=== PATIENT | male | born 1955 | race Caucasian/White ===

== ENCOUNTER 2017-02-23 05:57 | Inpatient (IN) | payer BC ==
[2017-02-23] MEDS ORDERED: MEPERIDINE 100 MG INJ (08:16)
[2017-02-23] MEDS ORDERED: NEOSTIGMINE 3 MG/3 ML SYRINGE ×2 (08:16→09:11)
[2017-02-23] MEDS ORDERED: LIDOCAINE 2% (SDV) 5 ML INJ (08:16)
[2017-02-23] MEDS ORDERED: PROPOFOL 20 ML (08:16)
[2017-02-23] MEDS ORDERED: ROCURONIUM 50 MG INJ ×2 (08:16→09:46)
[2017-02-23] MEDS ORDERED: GLYCOPYRROLATE 0.4 MG INJ ×2 (08:16→09:11)
[2017-02-23] MEDS ORDERED: SUCCINYLCHOLINE CHLORIDE 100 MG/5 ML SYG IV (08:16)
[2017-02-23] MEDS ORDERED: ONDANSETRON 4 MG INJ (10:47)
[2017-02-23] MEDS ORDERED: FENTAnyl 50 MCG/ML VIAL IV ×2 (11:00)
[2017-02-23] MEDS ORDERED: LABETALOL HCL 20MG INJ IV (11:00)
[2017-02-23] MEDS ORDERED: METOCLOPRAMIDE 10 MG INJ IV (11:00)
[2017-02-23] MEDS ORDERED: HYDROmorphONE (0.2 MG/ML) 10ML SYG IV ×3 (11:00)
[2017-02-23] MEDS ORDERED: DIPHENHYDRAMINE 50 MG INJ IV (11:00)
[2017-02-23] MEDS ORDERED: hydrALAzine 20 MG INJ IV (11:00)
[2017-02-23] MEDS ORDERED: MIDAZOLAM 1 MG/ML 2 ML INJ IV (11:00)
[2017-02-23] MEDS ORDERED: OXYCODONE/ACETAMINOPHEN (5/325) TAB PO ×2 (11:00)
[2017-02-23] MEDS ORDERED: EPHEDrine SULFATE 50 MG/5 ML SYG IV (11:00)
[2017-02-23] MEDS ORDERED: ONDANSETRON 4 MG INJ IV (11:30)
[2017-02-23] MEDS: morphine 1 MG/ML 30 ML (PCA) IV ×3 (11:33→23:59)
[2017-02-23] MEDS: FENTAnyl 50 MCG/ML VIAL IV ×2 (11:35→11:42)
[2017-02-23] MEDS: MEPERIDINE 25 MG INJ IV (11:35)
[2017-02-23] MEDS: ONDANSETRON 4 MG INJ IV (11:35)
[2017-02-23] MEDS: SOD CHLORIDE 0.9% 1,000 ML IV (11:38)
[2017-02-23] MEDS: AMPICILLIN/SULB 3 GM/NS (PMX) 100 ML IVPB (12:25)
[2017-02-23] MEDS: D5W-0.45 NACL + KCL 20 MEQ 1,000 ML IV ×3 (13:00→19:46)
[2017-02-24] MEDS: D5W-0.45 NACL + KCL 20 MEQ 1,000 ML IV ×5 (01:11→23:55)
[2017-02-24] MEDS: PANTOPRAZOLE 40 MG INJ IV (06:23)
[2017-02-24] MEDS: morphine 1 MG/ML 30 ML (PCA) IV ×2 (07:00→18:11)
[2017-02-24 09:19] LABS: ADD MAN DIFF? NO
[2017-02-24 09:27] LABS: ABNORMAL IP MESSAGE 1; HEMATOCRIT 38.8 % (42.0-52.0); LYMPHOCYTES # 0.3 10^3/ul (0.8-2.9); LYMPHOCYTES % 6.6 % (15.0-51.0); MEAN CORPUSCULAR HEMOGLOBIN 29.2 pg (29.0-33.0); MEAN CORPUSCULAR HGB CONC 33.5 g/dl (32.0-37.0); MEAN CORPUSCULAR VOLUME 87.2 fl (82.0-101.0); MONOCYTE # 0.4 10^3/ul (0.3-0.9); MONOCYTES % 7.6 % (0.0-11.0); NEUTROPHIL # 4.3 10^3/ul (1.6-7.5); NEUTROPHILS % 85.2 % (39.0-77.0); PLATELET COUNT 139 10^3/UL (140-415); POSITIVE DIFF @See below; RED BLOOD COUNT 4.45 10^6/ul (4.70-6.10); RED CELL DISTRIBUTION WIDTH 13.2 % (11.5-14.5)
[2017-02-24 09:47] LABS: INR 1.06; PROTIME 13.9 Sec (11.9-14.9); PT RATIO 1.1
[2017-02-24 09:48] LABS: PARTIAL THROMBOPLASTIN TIME 31.9 Sec (25.0-35.0)
[2017-02-24 09:49] LABS: ANION GAP 8 (8-16); BLOOD UREA NITROGEN 6 mg/dl (7-20); CALCIUM 8.7 mg/dl (8.4-10.2); CARBON DIOXIDE 30 mmol/L (21-31); CHLORIDE 103 mmol/L (97-110); CREATININE 0.81 mg/dl (0.61-1.24); GLUCOSE 145 mg/dl (70-220); MAGNESIUM 1.7 mg/dl (1.7-2.5); PHOSPHORUS 2.6 mg/dl (2.5-4.9); POTASSIUM 4.1 mmol/L (3.5-5.1); SODIUM 137 mmol/L (135-144)
[2017-02-24] MEDS: ACETAMINOPHEN 1000MG/100ML IV 100 ML IVPB (22:01)
[2017-02-25] MEDS: D5W-0.45 NACL + KCL 20 MEQ 1,000 ML IV ×6 (03:51→23:08)
[2017-02-25] MEDS: PANTOPRAZOLE 40 MG INJ IV (05:39)
[2017-02-25 11:37] LABS: ADD MAN DIFF? NO
[2017-02-25 11:40] LABS: ABNORMAL IP MESSAGE 1; HEMOGLOBIN 14.4 g/dl (14.0-18.0); LYMPHOCYTES # 0.3 10^3/ul (0.8-2.9); LYMPHOCYTES % 5.8 % (15.0-51.0); MEAN CORPUSCULAR HEMOGLOBIN 28.7 pg (29.0-33.0); MEAN CORPUSCULAR HGB CONC 32.7 g/dl (32.0-37.0); MEAN CORPUSCULAR VOLUME 87.6 fl (82.0-101.0); MEAN PLATELET VOLUME 11.1 fl (7.4-10.4); MONOCYTE # 0.3 10^3/ul (0.3-0.9); MONOCYTES % 6.9 % (0.0-11.0); NEUTROPHIL # 3.8 10^3/ul (1.6-7.5); NEUTROPHILS % 87.1 % (39.0-77.0); PLATELET COUNT 141 10^3/UL (140-415); POSITIVE DIFF @See below; RED BLOOD COUNT 5.02 10^6/ul (4.70-6.10); RED CELL DISTRIBUTION WIDTH 12.8 % (11.5-14.5)
[2017-02-25 11:40] LABS: WHITE BLOOD COUNT 4.3 10^3/ul (4.8-10.8)
[2017-02-25 12:09] LABS: ANION GAP 16 (8-16); BLOOD UREA NITROGEN 4 mg/dl (7-20); CALCIUM 9.6 mg/dl (8.4-10.2); CARBON DIOXIDE 33 mmol/L (21-31); CHLORIDE 100 mmol/L (97-110); CREATININE 0.83 mg/dl (0.61-1.24); GLUCOSE 138 mg/dl (70-220); MAGNESIUM 1.9 mg/dl (1.7-2.5); PHOSPHORUS 2.6 mg/dl (2.5-4.9); POTASSIUM 4.6 mmol/L (3.5-5.1); SODIUM 144 mmol/L (135-144)
[2017-02-25 12:35] LABS: PT RATIO 1.1
[2017-02-25] MEDS: PIPER-TAZO 3.375 GM IV (PMX) 50 ML IVPB ×2 (13:23→23:08)
[2017-02-25 14:30] LABS: INR 1.04; PROTIME 13.8 Sec (11.9-14.9)
[2017-02-25 14:33] LABS: PARTIAL THROMBOPLASTIN TIME 32.3 Sec (25.0-35.0)
[2017-02-25] MEDS: morphine 4 MG/ML VIAL IV (16:02)
[2017-02-25] MEDS ORDERED: METOPROLOL 5 MG INJ IV (16:30)
[2017-02-25] MEDS: SOD CHLORIDE 0.9% 500 ML IV (17:29)
[2017-02-25 18:10] LABS: LACTIC ACID 0.9 mmol/L (0.5-2.0)
[2017-02-25 18:14] LABS: TROPONIN-I < 0.012 ng/ml (0.00-0.12)
[2017-02-25] MEDS ORDERED: HYDROmorphONE 1 MG/ML SYG IV (18:30)
[2017-02-25 18:40] LABS: THYROID STIMULATING HORMONE 0.985 MIU/L (0.465-4.680)
[2017-02-25] MEDS: HYDROmorphONE 1 MG/ML SYG IV (20:22)
[2017-02-26] MEDS: HYDROmorphONE 1 MG/ML SYG IV ×4 (01:04→21:42)
[2017-02-26 01:25] LABS: TROPONIN-I < 0.012 ng/ml (0.00-0.12)
[2017-02-26] MEDS: PANTOPRAZOLE 40 MG INJ IV (05:57)
[2017-02-26] MEDS: PIPER-TAZO 3.375 GM IV (PMX) 50 ML IVPB ×3 (05:57→21:42)
[2017-02-26] MEDS: D5W-0.45 NACL + KCL 20 MEQ 1,000 ML IV ×3 (05:57→18:21)
[2017-02-26 10:10] LABS: ADD MAN DIFF? NO
[2017-02-26 10:17] LABS: WHITE BLOOD COUNT 3.3 10^3/ul (4.8-10.8)
[2017-02-26 10:17] LABS: ABNORMAL IP MESSAGE 1; BASOPHILS % 0.3 % (0.0-2.0); EOSINOPHILS % 1.2 % (0.0-7.0); HEMATOCRIT 38.4 % (42.0-52.0); HEMOGLOBIN 12.7 g/dl (14.0-18.0); LYMPHOCYTES # 0.3 10^3/ul (0.8-2.9); LYMPHOCYTES % 8.5 % (15.0-51.0); MEAN CORPUSCULAR HEMOGLOBIN 28.7 pg (29.0-33.0); MEAN CORPUSCULAR HGB CONC 33.1 g/dl (32.0-37.0); MEAN CORPUSCULAR VOLUME 86.9 fl (82.0-101.0); MEAN PLATELET VOLUME 11.2 fl (7.4-10.4); MONOCYTE # 0.3 10^3/ul (0.3-0.9); MONOCYTES % 7.9 % (0.0-11.0); NEUTROPHIL # 2.7 10^3/ul (1.6-7.5); NEUTROPHILS % 82.1 % (39.0-77.0); PLATELET COUNT 116 10^3/UL (140-415); POSITIVE DIFF @See below; RED BLOOD COUNT 4.42 10^6/ul (4.70-6.10); RED CELL DISTRIBUTION WIDTH 12.7 % (11.5-14.5)
[2017-02-26 10:30] LABS: INR 1.09; PROTIME 14.2 Sec (11.9-14.9); PT RATIO 1.1
[2017-02-26 10:45] LABS: ANION GAP 12 (8-16); BLOOD UREA NITROGEN 6 mg/dl (7-20); CALCIUM 8.9 mg/dl (8.4-10.2); CARBON DIOXIDE 29 mmol/L (21-31); CHLORIDE 101 mmol/L (97-110); GLUCOSE 127 mg/dl (70-220); MAGNESIUM 1.9 mg/dl (1.7-2.5); PHOSPHORUS 3.2 mg/dl (2.5-4.9); POTASSIUM 3.9 mmol/L (3.5-5.1); SODIUM 138 mmol/L (135-144)
[2017-02-26 11:05] LABS: TROPONIN-I < 0.012 ng/ml (0.00-0.12)
[2017-02-27] MEDS: GUAIFENESIN/CODEINE 5ML CUP PO (01:30)
[2017-02-27] MEDS: D5W-0.45 NACL + KCL 20 MEQ 1,000 ML IV ×4 (01:35→22:42)
[2017-02-27] MEDS: PIPER-TAZO 3.375 GM IV (PMX) 50 ML IVPB ×3 (06:00→22:42)
[2017-02-27] MEDS: PANTOPRAZOLE 40 MG INJ IV (06:00)
[2017-02-27 08:19] LABS: ADD MAN DIFF? NO
[2017-02-27 08:25] LABS: WHITE BLOOD COUNT 3.4 10^3/ul (4.8-10.8)
[2017-02-27 08:25] LABS: ABNORMAL IP MESSAGE 1; BASOPHILS % 0.6 % (0.0-2.0); EOSINOPHILS # 0.1 10^3/ul (0.0-0.5); EOSINOPHILS % 2.9 % (0.0-7.0); HEMATOCRIT 42.2 % (42.0-52.0); LYMPHOCYTES # 0.5 10^3/ul (0.8-2.9); LYMPHOCYTES % 15.6 % (15.0-51.0); MEAN CORPUSCULAR HEMOGLOBIN 28.9 pg (29.0-33.0); MEAN CORPUSCULAR HGB CONC 33.2 g/dl (32.0-37.0); MEAN CORPUSCULAR VOLUME 87.2 fl (82.0-101.0); MONOCYTE # 0.3 10^3/ul (0.3-0.9); MONOCYTES % 9.7 % (0.0-11.0); NEUTROPHIL # 2.4 10^3/ul (1.6-7.5); NEUTROPHILS % 70.9 % (39.0-77.0); PLATELET COUNT 170 10^3/UL (140-415); POSITIVE DIFF @See below; RED BLOOD COUNT 4.84 10^6/ul (4.70-6.10); RED CELL DISTRIBUTION WIDTH 12.7 % (11.5-14.5)
[2017-02-27 09:03] LABS: ANION GAP 15 (8-16); BLOOD UREA NITROGEN 11 mg/dl (7-20); CALCIUM 9.8 mg/dl (8.4-10.2); CARBON DIOXIDE 30 mmol/L (21-31); CHLORIDE 101 mmol/L (97-110); CREATININE 0.94 mg/dl (0.61-1.24); GLUCOSE 118 mg/dl (70-220); POTASSIUM 4.1 mmol/L (3.5-5.1); SODIUM 142 mmol/L (135-144)
[2017-02-27] MEDS: HYDROmorphONE 1 MG/ML SYG IV (17:41)
[2017-02-28] MEDS: D5W-0.45 NACL + KCL 20 MEQ 1,000 ML IV ×3 (05:11→18:31)
[2017-02-28] MEDS: PANTOPRAZOLE 40 MG INJ IV (05:12)
[2017-02-28] MEDS: PIPER-TAZO 3.375 GM IV (PMX) 50 ML IVPB ×3 (05:12→22:43)
[2017-02-28 08:38] LABS: WHITE BLOOD COUNT 3.9 10^3/ul (4.8-10.8)
[2017-02-28 08:38] LABS: ADD MAN DIFF? NO; BASOPHILS % 0.5 % (0.0-2.0); EOSINOPHILS # 0.2 10^3/ul (0.0-0.5); EOSINOPHILS % 3.9 % (0.0-7.0); HEMATOCRIT 40.2 % (42.0-52.0); HEMOGLOBIN 13.3 g/dl (14.0-18.0); LYMPHOCYTES # 0.6 10^3/ul (0.8-2.9); MEAN CORPUSCULAR HEMOGLOBIN 28.9 pg (29.0-33.0); MEAN CORPUSCULAR HGB CONC 33.1 g/dl (32.0-37.0); MEAN CORPUSCULAR VOLUME 87.4 fl (82.0-101.0); MEAN PLATELET VOLUME 10.8 fl (7.4-10.4); MONOCYTE # 0.4 10^3/ul (0.3-0.9); NEUTROPHIL # 2.7 10^3/ul (1.6-7.5); NEUTROPHILS % 70.3 % (39.0-77.0); PLATELET COUNT 163 10^3/UL (140-415); RED CELL DISTRIBUTION WIDTH 12.8 % (11.5-14.5)
[2017-02-28 09:06] LABS: ANION GAP 16 (8-16); BLOOD UREA NITROGEN 17 mg/dl (7-20); CALCIUM 9.3 mg/dl (8.4-10.2); CARBON DIOXIDE 29 mmol/L (21-31); CHLORIDE 104 mmol/L (97-110); CREATININE 0.95 mg/dl (0.61-1.24); GLUCOSE 127 mg/dl (70-220); POTASSIUM 4.6 mmol/L (3.5-5.1); SODIUM 144 mmol/L (135-144)
[2017-02-28] MEDS ORDERED: VITAMIN A & D 5 GM OINT PACKET TOP (10:30)
[2017-03-01] MEDS: D5W-0.45 NACL + KCL 20 MEQ 1,000 ML IV ×4 (01:37→21:17)
[2017-03-01] MEDS: PANTOPRAZOLE 40 MG INJ IV (05:55)
[2017-03-01] MEDS: PIPER-TAZO 3.375 GM IV (PMX) 50 ML IVPB (05:55)
[2017-03-01 09:03] LABS: ADD MAN DIFF? NO
[2017-03-01 09:06] LABS: WHITE BLOOD COUNT 3.4 10^3/ul (4.8-10.8)
[2017-03-01 09:06] LABS: ABNORMAL IP MESSAGE 1; BASOPHILS % 0.6 % (0.0-2.0); EOSINOPHILS # 0.2 10^3/ul (0.0-0.5); EOSINOPHILS % 5.9 % (0.0-7.0); HEMATOCRIT 40.4 % (42.0-52.0); HEMOGLOBIN 13.2 g/dl (14.0-18.0); LYMPHOCYTES # 0.6 10^3/ul (0.8-2.9); LYMPHOCYTES % 17.1 % (15.0-51.0); MEAN CORPUSCULAR HEMOGLOBIN 28.4 pg (29.0-33.0); MEAN CORPUSCULAR HGB CONC 32.7 g/dl (32.0-37.0); MEAN CORPUSCULAR VOLUME 87.1 fl (82.0-101.0); MEAN PLATELET VOLUME 10.6 fl (7.4-10.4); MONOCYTE # 0.3 10^3/ul (0.3-0.9); MONOCYTES % 9.7 % (0.0-11.0); NEUTROPHIL # 2.3 10^3/ul (1.6-7.5); NEUTROPHILS % 66.4 % (39.0-77.0); PLATELET COUNT 171 10^3/UL (140-415); POSITIVE DIFF @See below; RED BLOOD COUNT 4.64 10^6/ul (4.70-6.10); RED CELL DISTRIBUTION WIDTH 12.8 % (11.5-14.5)
[2017-03-01 09:27] LABS: ANION GAP 15 (8-16); BLOOD UREA NITROGEN 13 mg/dl (7-20); CALCIUM 9.2 mg/dl (8.4-10.2); CARBON DIOXIDE 30 mmol/L (21-31); CHLORIDE 102 mmol/L (97-110); CREATININE 0.89 mg/dl (0.61-1.24); GLUCOSE 114 mg/dl (70-220); POTASSIUM 4.1 mmol/L (3.5-5.1); SODIUM 143 mmol/L (135-144)
[2017-03-01 22:53] LABS: ADD MAN DIFF? NO
[2017-03-01 22:54] LABS: ABNORMAL IP MESSAGE 1; BASOPHILS % 0.2 % (0.0-2.0); EOSINOPHILS # 0.2 10^3/ul (0.0-0.5); EOSINOPHILS % 4.2 % (0.0-7.0); HEMATOCRIT 39.4 % (42.0-52.0); HEMOGLOBIN 13.2 g/dl (14.0-18.0); LYMPHOCYTES # 0.6 10^3/ul (0.8-2.9); LYMPHOCYTES % 13.9 % (15.0-51.0); MEAN CORPUSCULAR HEMOGLOBIN 28.9 pg (29.0-33.0); MEAN CORPUSCULAR HGB CONC 33.5 g/dl (32.0-37.0); MEAN CORPUSCULAR VOLUME 86.2 fl (82.0-101.0); MEAN PLATELET VOLUME 10.4 fl (7.4-10.4); MONOCYTE # 0.5 10^3/ul (0.3-0.9); MONOCYTES % 11.4 % (0.0-11.0); NEUTROPHIL # 2.8 10^3/ul (1.6-7.5); NEUTROPHILS % 70.1 % (39.0-77.0); PLATELET COUNT 174 10^3/UL (140-415); POSITIVE DIFF @See below; RED BLOOD COUNT 4.57 10^6/ul (4.70-6.10); RED CELL DISTRIBUTION WIDTH 12.8 % (11.5-14.5)
[2017-03-01 23:21] LABS: ANION GAP 13 (8-16); BLOOD UREA NITROGEN 15 mg/dl (7-20); CALCIUM 9.6 mg/dl (8.4-10.2); CARBON DIOXIDE 30 mmol/L (21-31); CHLORIDE 103 mmol/L (97-110); CREATININE 0.87 mg/dl (0.61-1.24); GLUCOSE 121 mg/dl (70-220); POTASSIUM 3.9 mmol/L (3.5-5.1); SODIUM 142 mmol/L (135-144)
[2017-03-02] MEDS: D5W-0.45 NACL + KCL 20 MEQ 1,000 ML IV ×3 (04:15→17:09)
[2017-03-02] MEDS: PANTOPRAZOLE 40 MG INJ IV (06:59)
[2017-03-02 08:23] LABS: ADD MAN DIFF? NO
[2017-03-02 08:30] LABS: BASOPHILS % 0.5 % (0.0-2.0); EOSINOPHILS # 0.3 10^3/ul (0.0-0.5); EOSINOPHILS % 5.1 % (0.0-7.0); HEMATOCRIT 46.8 % (42.0-52.0); HEMOGLOBIN 15.2 g/dl (14.0-18.0); LYMPHOCYTES # 1.1 10^3/ul (0.8-2.9); LYMPHOCYTES % 18.7 % (15.0-51.0); MEAN CORPUSCULAR HEMOGLOBIN 28.2 pg (29.0-33.0); MEAN CORPUSCULAR HGB CONC 32.5 g/dl (32.0-37.0); MEAN CORPUSCULAR VOLUME 86.8 fl (82.0-101.0); MEAN PLATELET VOLUME 11.1 fl (7.4-10.4); MONOCYTE # 0.6 10^3/ul (0.3-0.9); NEUTROPHIL # 3.7 10^3/ul (1.6-7.5); NEUTROPHILS % 64.4 % (39.0-77.0); PLATELET COUNT 243 10^3/UL (140-415); RED BLOOD COUNT 5.39 10^6/ul (4.70-6.10); RED CELL DISTRIBUTION WIDTH 12.5 % (11.5-14.5)
[2017-03-02 08:30] LABS: WHITE BLOOD COUNT 5.7 10^3/ul (4.8-10.8)
[2017-03-02 09:03] LABS: ANION GAP 18 (8-16); BLOOD UREA NITROGEN 14 mg/dl (7-20); CALCIUM 9.8 mg/dl (8.4-10.2); CARBON DIOXIDE 29 mmol/L (21-31); CHLORIDE 102 mmol/L (97-110); CREATININE 0.85 mg/dl (0.61-1.24); GLUCOSE 109 mg/dl (70-220); POTASSIUM 4.5 mmol/L (3.5-5.1); SODIUM 144 mmol/L (135-144)
[2017-03-02] MEDS: ATENOLOL 25 MG TAB PO (21:22)
[2017-03-03] MEDS: PANTOPRAZOLE 40 MG INJ IV (05:13)
[2017-03-03] MEDS: D5W-0.45 NACL + KCL 20 MEQ 1,000 ML IV (05:14)
[2017-03-03] MEDS: ATENOLOL 25 MG TAB PO ×2 (08:16→22:20)
[2017-03-03 09:18] LABS: ADD MAN DIFF? NO
[2017-03-03 09:29] LABS: BASOPHILS % 0.3 % (0.0-2.0); EOSINOPHILS # 0.2 10^3/ul (0.0-0.5); EOSINOPHILS % 6.1 % (0.0-7.0); HEMATOCRIT 41.7 % (42.0-52.0); HEMOGLOBIN 13.6 g/dl (14.0-18.0); LYMPHOCYTES # 0.9 10^3/ul (0.8-2.9); LYMPHOCYTES % 23.3 % (15.0-51.0); MEAN CORPUSCULAR HEMOGLOBIN 28.6 pg (29.0-33.0); MEAN CORPUSCULAR HGB CONC 32.6 g/dl (32.0-37.0); MEAN CORPUSCULAR VOLUME 87.6 fl (82.0-101.0); MEAN PLATELET VOLUME 10.9 fl (7.4-10.4); MONOCYTE # 0.4 10^3/ul (0.3-0.9); MONOCYTES % 11.1 % (0.0-11.0); NEUTROPHIL # 2.2 10^3/ul (1.6-7.5); NEUTROPHILS % 58.9 % (39.0-77.0); PLATELET COUNT 226 10^3/UL (140-415); RED BLOOD COUNT 4.76 10^6/ul (4.70-6.10); RED CELL DISTRIBUTION WIDTH 12.6 % (11.5-14.5)
[2017-03-03 09:29] LABS: WHITE BLOOD COUNT 3.8 10^3/ul (4.8-10.8)
[2017-03-03 09:51] LABS: ANION GAP 15 (8-16); BLOOD UREA NITROGEN 14 mg/dl (7-20); CALCIUM 9.4 mg/dl (8.4-10.2); CARBON DIOXIDE 29 mmol/L (21-31); CHLORIDE 103 mmol/L (97-110); CREATININE 0.78 mg/dl (0.61-1.24); GLUCOSE 92 mg/dl (70-220); POTASSIUM 4.3 mmol/L (3.5-5.1); SODIUM 143 mmol/L (135-144)
[2017-03-03] MEDS ORDERED: HYDROCODONE/APAP (5/325) TAB PO (14:30)
[2017-03-04] MEDS: PANTOPRAZOLE 40 MG INJ IV (05:38)
[2017-03-04] MEDS: ATENOLOL 25 MG TAB PO (09:00)
== END 2017-03-04 14:46 | disposition home or self-care (01) | DRG 330 ==
LOC: REC 05:57 → MS4 02-25 17:07 → MS2 12:15
PROC: 0DTF0ZZ Resection of Right Large Intestine, Open Approach (ICD-10-PCS; principal; 2017-02-23 08:00)
PROC: 0DBU0ZX Excision of Omentum, Open Approach, Diagnostic (ICD-10-PCS; 2017-02-23 08:00)
DX: C18.3 Malignant neoplasm of hepatic flexure (principal); K56.699 Other intestinal obstruction unspecified as to partial versus complete obstruction; R42 Dizziness and giddiness; R00.0 Tachycardia, unspecified
CPT/HCPCS: 71045; 80048; 83605; 83735; 84100; 84443; 84484; 85025; 85610; 85730; 87086; 88307; 88331; 93005; 93306

== ENCOUNTER 2017-10-24 10:11 | Observation (INO) | payer BC ==
[~2017-10-24 10:11] MED LIST: CEFAZOLIN 2 GM/50 ML (PMX) 50 ML IVPB
[2017-10-24] MEDS ORDERED: LACTATED RINGER'S 1,000 ML IV (11:30)
[2017-10-24] MEDS ORDERED: POLYMYXIN/BACITRACIN 1L IRRIG (11:55)
[2017-10-24] MEDS ORDERED: hydrALAzine 20 MG INJ IV (12:00)
[2017-10-24] MEDS ORDERED: LABETALOL HCL 20MG INJ IV (12:00)
[2017-10-24] MEDS ORDERED: FENTAnyl 50 MCG/ML VIAL IV ×2 (12:00)
[2017-10-24] MEDS ORDERED: TRIMETHOBENZAMIDE 100 MG/ML VIAL IM (12:00)
[2017-10-24] MEDS ORDERED: EPHEDrine SULFATE 50 MG/5 ML SYG IV (12:00)
[2017-10-24] MEDS ORDERED: MIDAZOLAM 1 MG/ML 2 ML INJ IV (12:00)
[2017-10-24] MEDS ORDERED: IPRATROPIUM (NEB) 0.5 MG/2.5 ML AMP HHN (12:00)
[2017-10-24] MEDS ORDERED: DIPHENHYDRAMINE 50 MG INJ IV (12:00)
[2017-10-24] MEDS ORDERED: ALBUTEROL 0.083% (NEB) 2.5 MG/3 ML AMP HHN (12:00)
[2017-10-24] MEDS ORDERED: HYDROmorphONE 1 MG/5 ML IV SYRINGE IV ×3 (12:00)
[2017-10-24] MEDS ORDERED: MEPERIDINE 25 MG INJ IV (12:00)
[2017-10-24] MEDS ORDERED: OXYCODONE/ACETAMINOPHEN (5/325) TAB PO ×3 (12:00→15:00)
[2017-10-24] MEDS ORDERED: CEFAZOLIN 1 GM INJ (12:07)
[2017-10-24] MEDS ORDERED: ROCURONIUM 50 MG INJ (12:07)
[2017-10-24] MEDS ORDERED: NEOSTIGMINE 3 MG/3 ML SYRINGE (12:07)
[2017-10-24] MEDS ORDERED: PROPOFOL 20 ML (12:07)
[2017-10-24] MEDS ORDERED: FENTAnyl 50 MCG/ML VIAL ×3 (12:08→13:46)
[2017-10-24] MEDS ORDERED: ONDANSETRON 4 MG INJ (12:08)
[2017-10-24] MEDS ORDERED: MIDAZOLAM 1 MG/ML 2 ML INJ (12:08)
[2017-10-24] MEDS ORDERED: DEXAMETHASONE 4 MG/ML 1 ML INJ (12:08)
[2017-10-24] MEDS: ROPIVACAINE 0.5 % 30 ML VIAL (12:58)
[2017-10-24] MEDS ORDERED: ROPIVACAINE 0.5 % 30 ML VIAL (13:25)
[2017-10-24] MEDS ORDERED: KETOROLAC 30 MG INJ (13:46)
[2017-10-24] MEDS ORDERED: SUGAMMADEX SODIUM 200 MG/2 ML VIAL IV (14:40)
[2017-10-24] MEDS ORDERED: METOCLOPRAMIDE 10 MG INJ (14:54)
[2017-10-24] MEDS ORDERED: morphine 2 MG INJ IV (15:00)
[2017-10-24] MEDS: KETOROLAC 30 MG INJ IV ×2 (15:22→22:10)
[2017-10-24] MEDS: FENTAnyl 50 MCG/ML VIAL IV (15:22)
[2017-10-24] MEDS: ONDANSETRON 4 MG INJ IV (15:26)
[2017-10-24 15:58] LABS: ANION GAP 11 (8-16); BLOOD UREA NITROGEN 16 mg/dl (7-20); CARBON DIOXIDE 26 mmol/L (21-31); CHLORIDE 107 mmol/L (97-110); GLUCOSE 95 mg/dl (70-220); SODIUM 140 mmol/L (135-144)
[2017-10-24 15:59] LABS: CALCIUM 9.7 mg/dl (8.4-10.2); CREATININE 0.76 mg/dl (0.61-1.24)
[2017-10-24] MEDS: D5-NS + KCL 20 MEQ 1,000 ML IV (20:22)
[2017-10-25] MEDS: D5-NS + KCL 20 MEQ 1,000 ML IV ×2 (00:41→06:16)
[2017-10-25] MEDS: KETOROLAC 30 MG INJ IV ×4 (02:46→21:01)
[2017-10-25] MEDS: ENOXAPARIN 40 MG/0.4 ML SYG SC (06:14)
[2017-10-25 08:02] LABS: ADD MAN DIFF? NO
[2017-10-25 08:19] LABS: ABNORMAL IP MESSAGE 1; HEMATOCRIT 42.2 % (42.0-52.0); HEMOGLOBIN 14.4 g/dl (14.0-18.0); LYMPHOCYTES # 0.6 10^3/ul (0.8-2.9); LYMPHOCYTES % 8.7 % (15.0-51.0); MEAN CORPUSCULAR HEMOGLOBIN 29.9 pg (29.0-33.0); MEAN CORPUSCULAR HGB CONC 34.1 g/dl (32.0-37.0); MEAN CORPUSCULAR VOLUME 87.6 fl (82.0-101.0); MEAN PLATELET VOLUME 10.5 fl (7.4-10.4); MONOCYTE # 0.4 10^3/ul (0.3-0.9); MONOCYTES % 6.2 % (0.0-11.0); NEUTROPHIL # 5.6 10^3/ul (1.6-7.5); NEUTROPHILS % 84.6 % (39.0-77.0); PLATELET COUNT 127 10^3/UL (140-415); POSITIVE DIFF @See below; RED BLOOD COUNT 4.82 10^6/ul (4.70-6.10); RED CELL DISTRIBUTION WIDTH 11.7 % (11.5-14.5)
[2017-10-25 08:19] LABS: WHITE BLOOD COUNT 6.6 10^3/ul (4.8-10.8)
[2017-10-25 08:36] LABS: ANION GAP 9 (8-16); BLOOD UREA NITROGEN 17 mg/dl (7-20); CALCIUM 8.9 mg/dl (8.4-10.2); CARBON DIOXIDE 27 mmol/L (21-31); CHLORIDE 107 mmol/L (97-110); CREATININE 0.77 mg/dl (0.61-1.24); GLUCOSE 122 mg/dl (70-220); POTASSIUM 4.5 mmol/L (3.5-5.1); SODIUM 138 mmol/L (135-144)
[2017-10-25] MEDS: HYDROmorphONE 1 MG/ML SYG IV (10:17)
[2017-10-25] MEDS: ACETAMINOPHEN 325 MG TAB PO (10:21)
[2017-10-25] MEDS ORDERED: DOCUSATE SODIUM 100 MG CAP PO (11:30)
[2017-10-25] MEDS: IBUPROFEN 600 MG TAB PO (15:58)
[2017-10-25] MEDS: FAMOTIDINE 20 MG TAB PO ×2 (15:58→21:00)
[2017-10-26] MEDS: KETOROLAC 30 MG INJ IV ×2 (03:00→08:25)
[2017-10-26] MEDS: ENOXAPARIN 40 MG/0.4 ML SYG SC (06:36)
[2017-10-26] MEDS: FAMOTIDINE 20 MG TAB PO (08:24)
[2017-10-26] MEDS: ONDANSETRON 4 MG INJ IV (08:26)
== END 2017-10-26 13:05 | disposition home health service (06) ==
LOC: SDS 10:11 → REC 14:45 → 2NE 18:40
DX: K43.2 Incisional hernia without obstruction or gangrene (principal); Z85.038 Personal history of other malignant neoplasm of large intestine
CPT/HCPCS: 49560; 80048; 85025; 87086; 99217

== ENCOUNTER 2017-10-30 14:01 | Inpatient (IN) | payer BC ==
[2017-10-30] MEDS: SOD CHLORIDE 0.9% 1,000 ML IV ×4 (14:51→20:19)
[2017-10-30 14:52] LABS: ADD MAN DIFF? NO
[2017-10-30] MEDS: SODIUM CHLORIDE 0.9% 1L BAG IV* (14:57)
[2017-10-30 14:58] LABS: BASOPHILS % 0.2 % (0.0-2.0); EOSINOPHILS % 0.1 % (0.0-7.0); HEMATOCRIT 47.1 % (42.0-52.0); HEMOGLOBIN 16.2 g/dl (14.0-18.0); LYMPHOCYTES # 0.9 10^3/ul (0.8-2.9); MEAN CORPUSCULAR HEMOGLOBIN 29.9 pg (29.0-33.0); MEAN CORPUSCULAR HGB CONC 34.4 g/dl (32.0-37.0); MEAN CORPUSCULAR VOLUME 87.1 fl (82.0-101.0); MEAN PLATELET VOLUME 9.9 fl (7.4-10.4); MONOCYTE # 0.9 10^3/ul (0.3-0.9); NEUTROPHIL # 9.8 10^3/ul (1.6-7.5); NEUTROPHILS % 83.3 % (39.0-77.0); PLATELET COUNT 230 10^3/UL (140-415); RED BLOOD COUNT 5.41 10^6/ul (4.70-6.10); RED CELL DISTRIBUTION WIDTH 11.6 % (11.5-14.5)
[2017-10-30 14:58] LABS: WHITE BLOOD COUNT 11.7 10^3/ul (4.8-10.8)
[2017-10-30 15:20] LABS: INR 1.04; PROTIME 13.7 Sec (11.9-14.9); PT RATIO 1.1
[2017-10-30] MEDS: HYDROmorphONE 1 MG/ML SYG IV (15:25)
[2017-10-30 15:27] LABS: ALANINE AMINOTRANSFERASE 53 IU/L (13-69); ALBUMIN/GLOBULIN RATIO 1.14; ALKALINE PHOSPHATASE 89 IU/L (42-121); ANION GAP 17 (8-16); ASPARTATE AMINO TRANSFERASE 47 IU/L (15-46); BILIRUBIN,INDIRECT 0.7 mg/dl (0-1.1); BILIRUBIN,TOTAL 0.7 mg/dl (0.2-1.3); BLOOD UREA NITROGEN 14 mg/dl (7-20); CALCIUM 9.5 mg/dl (8.4-10.2); CARBON DIOXIDE 24 mmol/L (21-31); CHLORIDE 103 mmol/L (97-110); CREATININE 0.86 mg/dl (0.61-1.24); GLUCOSE 129 mg/dl (70-220); POTASSIUM 3.8 mmol/L (3.5-5.1); SODIUM 140 mmol/L (135-144); TOTAL PROTEIN 7.5 g/dl (6.1-8.1)
[2017-10-30 15:27] LABS: LACTIC ACID 1.5 mmol/L (0.5-2.0)
[2017-10-30] MEDS: CEFEPIME 2GM/50 ML (PMX) 50 ML IVPB (15:36)
[2017-10-30] MEDS: ACETAMINOPHEN 500 MG TAB PO (15:36)
[2017-10-30] MEDS: ONDANSETRON 4 MG INJ IV (15:40)
[2017-10-30] MEDS: IOHEXOL 300MG/ML 150 ML BTL (15:58)
[2017-10-30] MEDS: SOD CHLORIDE 0.9% 100 ML (15:58)
[2017-10-30] MEDS: VANCOMYCIN 1 GM (PMX) 250 ML IVPB (16:53)
[2017-10-30] MEDS ORDERED: DOCUSATE SODIUM 100 MG CAP PO (18:00)
[2017-10-30] MEDS ORDERED: morphine 2 MG INJ IV (18:00)
[2017-10-30] MEDS ORDERED: ACETAMINOPHEN 325 MG TAB PO (18:00)
[2017-10-30] MEDS ORDERED: ONDANSETRON 4 MG INJ IV ×2 (18:00)
[2017-10-30] MEDS ORDERED: NACL 0.9% 3 ML SYG IV (18:00)
[2017-10-30] MEDS ORDERED: HYDROCODONE/APAP (5/325) TAB PO (18:00)
[2017-10-30] MEDS ORDERED: VANCOMYCIN IV PER PHARMACY XX (18:00)
[2017-10-30] MEDS: ERTAPENEM SODIUM 1 GM in SOD CHLORIDE 0.9% 100 ML IVPB (19:20)
[2017-10-30] MEDS: VANCOMYCIN 750 MG in SOD CHLORIDE 0.9% 150 ML IVPB (21:55)
[2017-10-30] MEDS: metroNIDAZOLE 500 MG/NS (PMX) 100 ML IVPB (21:56)
[2017-10-31] MEDS: CEFEPIME 1GM/50 ML (PMX) 50 ML IVPB ×3 (02:55→20:10)
[2017-10-31] MEDS: SOD CHLORIDE 0.9% 1,000 ML IV ×3 (03:47→23:47)
[2017-10-31] MEDS: VANCOMYCIN 1.25 GM in SOD CHLORIDE 0.9% 250 ML IVPB ×2 (05:30→16:47)
[2017-10-31] MEDS: metroNIDAZOLE 500 MG/NS (PMX) 100 ML IVPB ×3 (05:30→22:15)
[2017-10-31 05:58] LABS: ADD MAN DIFF? NO
[2017-10-31 06:01] LABS: BASOPHILS % 0.3 % (0.0-2.0); EOSINOPHILS % 0.3 % (0.0-7.0); HEMATOCRIT 38.1 % (42.0-52.0); HEMOGLOBIN 12.9 g/dl (14.0-18.0); LYMPHOCYTES # 0.8 10^3/ul (0.8-2.9); LYMPHOCYTES % 10.9 % (15.0-51.0); MEAN CORPUSCULAR HGB CONC 33.9 g/dl (32.0-37.0); MEAN CORPUSCULAR VOLUME 88.6 fl (82.0-101.0); MEAN PLATELET VOLUME 10.1 fl (7.4-10.4); MONOCYTE # 0.6 10^3/ul (0.3-0.9); MONOCYTES % 7.5 % (0.0-11.0); NEUTROPHILS % 80.1 % (39.0-77.0); PLATELET COUNT 186 10^3/UL (140-415); RED CELL DISTRIBUTION WIDTH 11.8 % (11.5-14.5)
[2017-10-31 06:01] LABS: WHITE BLOOD COUNT 7.5 10^3/ul (4.8-10.8)
[2017-10-31 06:34] LABS: ADD UMIC YES; UR ASCORBIC ACID NEGATIVE (NEGATIVE); UR BILIRUBIN (Dip) NEGATIVE (NEGATIVE); UR BLOOD (Dip) 1+ mg/dL (NEGATIVE); UR CLARITY CLEAR (CLEAR); UR COLOR YELLOW (YELLOW); UR GLUCOSE (Dip) NEGATIVE (NEGATIVE); UR KETONES (Dip) 1+ mg/dL (NEGATIVE); UR LEUKOCYTE ESTERASE (Dip) NEGATIVE Leu/ul (NEGATIVE); UR MUCUS FEW /HPF (NONE SEEN); UR NITRITE (Dip) NEGATIVE (NEGATIVE); UR RBC 1 /HPF (0-5); UR SPECIFIC GRAVITY (Dip) 1.024 (1.003-1.030); UR TOTAL PROTEIN (Dip) NEGATIVE (NEGATIVE); UR UROBILINOGEN (Dip) NEGATIVE (NEGATIVE); UR WBC 1 /HPF (0-5)
[2017-10-31 07:27] LABS: ANION GAP 11 (8-16); BLOOD UREA NITROGEN 11 mg/dl (7-20); CALCIUM 8.8 mg/dl (8.4-10.2); CARBON DIOXIDE 25 mmol/L (21-31); CHLORIDE 109 mmol/L (97-110); GLUCOSE 96 mg/dl (70-220); POTASSIUM 3.8 mmol/L (3.5-5.1); SODIUM 141 mmol/L (135-144)
[2017-10-31] MEDS ORDERED: LIDOCAINE 1% (MDV) 10 ML INJ INFIL (09:36)
[2017-10-31] MEDS: LIDOCAINE 1% (MPF) 30 ML INJ INJ (10:00)
[2017-10-31] MEDS: LORAZEPAM 2 MG INJ IV (12:30)
[2017-10-31] MEDS: HYDROmorphONE 0.5 MG/0.5 ML SYG IV (12:31)
[2017-10-31] MEDS ORDERED: morphine LIQ (10 MG/5 ML) CUP PO (18:00)
[2017-10-31] MEDS: ACETAMINOPHEN 325 MG TAB PO (20:11)
[2017-11-01 05:09] LABS: VANCOMYCIN,TROUGH 8.3 ug/ml (10.0-20.0)
[2017-11-01] MEDS: VANCOMYCIN 1.25 GM in SOD CHLORIDE 0.9% 250 ML IVPB (06:03)
[2017-11-01] MEDS: metroNIDAZOLE 500 MG/NS (PMX) 100 ML IVPB (06:04)
[2017-11-01] MEDS: CEFEPIME 1GM/50 ML (PMX) 50 ML IVPB (08:43)
[2017-11-01] MEDS: SOD CHLORIDE 0.9% 1,000 ML IV (10:22)
[2017-11-01] MEDS ORDERED: VANCOMYCIN 1.5 GM in SOD CHLORIDE 0.9% 250 ML IVPB (16:00)
== END 2017-11-01 13:28 | disposition home health service (06) | DRG 857 ==
LOC: E/R 14:01 → 6WM 17:40
PROC: 0W9F0ZZ Drainage of Abdominal Wall, Open Approach (ICD-10-PCS; principal; 2017-10-31)
DX: T81.4XXA Infection following a procedure, initial encounter (principal); L76.32 Postprocedural hematoma of skin and subcutaneous tissue following other procedure; Z85.038 Personal history of other malignant neoplasm of large intestine; Z87.891 Personal history of nicotine dependence; Y83.8 Other surgical procedures as the cause of abnormal reaction of the patient, or of later complication, without mention of misadventure at the time of the procedure
CPT/HCPCS: 36415; 71045; 74177; 80048; 80053; 80202; 81001; 83605; 85025; 85610; 85730; 87040; 87070; 87086; 96365; 96367; 99285-25